=== PATIENT | female | born 1950 | race Two or more races ===

== ENCOUNTER 2024-12-24 09:25 | Emergency (ER) | payer MEDICARE, MEDICAID, SELFPAY ==
[2024-12-24 09:25] VITALS: BP 127/67; PULSE 74; RESP 17; TEMP 36.5; O2SAT 99
[2024-12-24 09:47] VITALS: PULSE 71; RESP 18; O2SAT 98; BMI 18.5
--- NOTE | 2024-12-24 10:46 | EDNOTE_ITS ---
Altered Mental Status RME/HPI General Chief Complaint: Altered Mental Status Stated Complaint: ALTERED Time Seen by Provider: 12/24/24 10:35 Arrival date/time: 12/24/24 09:25 RME / HPI RME / HPI narrative: DR. DUNCAN MAIN ED EVALUATION: 74 year old female with past medical history significant for schizophrenia and behavioral problems presents to the Emergency Department [facility] from home with complaint of altered mental status. Patient has 24 hour care at home and her caregiver Jayne gave us some history. Senior Data Quality Analyst states that since last night about 7 PM the patient became more confused and had x6 urinating accidents, which is not normal. Denies any headache, fall, injury, loss of consciousness, or other symptoms. Denies any blood thinners. Related Data Home Medications ?Medication ?Instructions ?Recorded ?Confirmed acetaminophen 300 mg-codeine 30 mg 1 tab PO Q6HR PRN P ain 02/01/24 02/01/24 tablet Previous Rx's ?Medication ?Instructions ?Recorded amoxicillin 500 mg capsule 500 mg PO Q12H #10 caps 12/24 Allergies Allergy/AdvReac Type Severity Reaction Status Date / Time ibuprofen Allergy Severe Agitated Verified 12/24/24 09:46 Review of Systems Review of Systems Systems Reviewed: All systems reviewed, normal except as documented Narrative Review of Systems: Constitutional: DENIES: fevers; Eyes: DENIES: loss of vision; Head/Ear/Nose: DENIES: loss of hearing. Throat: DENIES: dysphagia. Cardiovascular: DENIES: chest pain, dyspnea, or syncope. Respiratory: DENIES: shortness of breath; Gastrointestinal: DENIES: rectal bleeding or melena. Genitourinary: DENIES: dysuria (painful or difficult urination); Musculoskeletal: DENIES: arthralgia (pain in a joint); Skin: DENIES: rash; Neurological: POSITIVES: AMS (see HPI); DENIES: loss of function or movement; Psychiatric: DENIES: recent major life stressor, emotional problem, illicit drug use or abuse; Endocrinology: DENIES: weight change,; Hematologic/Lymphatic: DENIES: abnormal bruising. Allergic/Immunologic: DENIES: urticaria (hives). Past Medical History Past Medical History PSYCHO/SOCIAL: Positive Schizophrenia, Depression and Anxiety Social History SMOKING STATUS: Never smoker SECOND HAND EXPOSURE: No SUBSTANCE USE: does not use ALCOHOL: Never ED Exam Narrative Physical exam: Physical Exam:? General:?? ? The vital signs were reviewed. ? ? The patient is non-toxic, in no apparent distress and appears healthy with a patent airway, no respiratory distress and has no apparent circulatory problems. Patient stutters and repeats her words, possibly slurry speech. Head & Scalp:?? ? Normocephalic, atraumatic. Face:?? ? Appears normal and is without lesions, deformity. Ears:??? Left external pinna appears normal. ? ? Right external pinna appears normal. Eyes:?? ? The sclera is anicteric.? No obvious photophobia. ? ? The Left and Right Orbit/Lid/Conjunctiva appears normal without swelling, discoloration or injection. Nose: ? ? The nose is without deformity, discharge or tenderness; Throat: ? ? Appears normal.? The mucous membranes are pink and moist without exudates, redness or mass seen.? The tongue appears normal. Neck: The neck is supple and no apparent mass or adenopathy. Chest: The chest wall is normal in size and symmetry and has no chest wall tenderness or crepitus. ? ? The patient displays normal ventilator effort withou t retractions, accessory muscle use and has adequate air movement bilaterally with no wheezes and no rales. ? Cardiovascular: Regular rate and rhythm; No murmurs, rubs, or gallops; Gastrointestinal: The abdomen appears normal.? No obvious hernias or mass. The abdomen is soft and benign, non-distended, with no pain, no guarding and no rebound tenderness.? Bowel sounds are present and normal sounding.? No CVA tenderness. Genitourinary: Back/Spine: Extremities/Musculoskeletal/lymphatic:? ? ? The bilateral upper and lower extremities are warm. There is no evidence of arterial? insufficiency. There is no evidence of venous insufficiency/edema. The patient spontaneously moves bilateral upper and lower extremities with no pain and no limitation of movement.? There is no apparent, injury or trauma. Skin:? The skin is warm, dry and intact.? No rashes. No petechia. No purpura. No abnormal bruising.? The color is appropriate with no cyanosis. Mental status/Psychiatric: Mental status is appropriate for age. The patient has no apparent delusions, visual hallucinations, no apparent audible hallucinations. The patient has no apparent suicidal thoughts/ideation and no apparent homicidal thoughts/ideation. Neurological:? Patient stutters and repeats her words, possibly slurry speech. Otherwise: The patient is awake, alert, interactive, cordial, cooperative and is oriented to name and situation. The patient follows commands and answers historical questions? There is no visual disturbance apparent.? The pupils are equal and reactive bilaterally with normal eye movements and no diplopia The bilateral upper and lower extremities have normal strength, normal range of motion and normal functioning. The gait, station and balance appears? to be baseline with no acute change Course Quality Measures none Orders Category Date Time Status Bedside Blood Glucose NOW Care 12/24/24 10:47 Active EKG (ED ONLY) *Do not use* NOW Care 12/24/24 10:[address] head/brain wo con Stat Exams 12/24/24 10:47 Completed EKG (ED Only) Stat Exams 12/24/24 10:47 Draft XR chest 1V portable Stat Exams 12/24/24 10:47 Completed Alcohol, Blood Medical Stat Lab 12/24/24 11:30 Completed Ammonia Stat Lab 12/24/24 11:30 Completed B-Type Natriuretic Peptide Stat Lab 12/24/24 11:30 Completed Blood Culture (Lab) Stat Lab 12/24/24 11:25 Received CBC Stat Lab 12/24/24 11:30 Completed Comprehensive Metabolic Panel Stat Lab 12/24/24 11:30 Completed Drug Screen,Urine Stat Lab 12/24/24 12:49 Completed Lactate (Lactic Acid) Stat Lab 12/24/24 11:30 Completed Procalcitonin Stat Lab 12/24/24 11:30 Completed Prothrombin Time with INR Stat Lab 12/24/24 11:30 Completed Troponin I Stat Lab 12/24/24 11:30 Completed Type and Screen Stat Lab 12/24/24 11:30 Completed Urinalysis, C/S if Indicated Stat Lab 12/24/24 12:49 Completed Venous Blood Gas Stat Lab 12/24/24 11:30 Completed Sodium Chloride 0.9% 1000 ml [Ns] 2,000 ml Med 12/24/24 10:47 Active IV 150 mls/hr Vital Signs Vital signs: Vital Signs Temperature 97.7 F 12/24/24 09:25 Pulse Rate 74 12/24/24 09:25 Respiratory Rate 17 12/24/24 09:25 Blood Pressure 127/67 12/24/24 09:25 Pulse Oximetry (%) 99 12/24/24 09:25 Oxygen Delivery Method Room Air 12/24/24 09:25 Altered Mental Status MDM Narrative [facility] Narrative:: Medical workup for confusion and slow mentation and complaint of several episodes of and urinary incontinence revealed white count 6.5 hemoglobin of 10.2 which is essentially the same as the previous mild anemia's. pH is 7.50 and pCO2 of 36 consistent with a mild respiratory alkalosis. Note the patient has some anxiety and history of schizophrenia. Sodium 130 potassium 4 2 chloride 104 CO2 of 104. BUN 17 creatinine 0.8 and the rest of the CHEM panel panel is negative troponin was negative BNP was 120 ammonia level is less than 10 and urine came back entirely negative with 3 red cells and 1 white cell. Urine drug screen was also negative. Alcohol level was negative. I cannot explain why this patient is having weakness and/or confusion. I went back in the room and the patient states she feels great wants to go home and claims she has no symptoms at this time. No other major workup was done and somehow her symptoms rapidly improved. I wonder if this is anxiety and she does have some psych issues Patient was ambulated>>>>>>>>>>> has her normal strength he has no problems and feels good and wants to go home. It is unclear to me why her strength is back and but I am glad it is. Medical workup was negative as mentioned above... She has 24-hour caregivers and the current caregiver Reta will continue managing her today and handed off to the next shift. Liz Holley, am scribing for and in the presence of Dr. Duncan. Patient data External records reviewed:: [facility] previous records (Reviewed last ED visit dated 06/13/24, discharged with the following: Acute pelvic pain) and EMS form Clinical information provided by:: patient, EMS and runstitching machine operator (caregiver Jayne) Social determinants that could affect healthcare access:: none Patient has the following chronic illnesses:: schizophrenia and behavioral problems How is presenting disease/condition affected by chronic disease/condition?: uneffected by Evaluation data The following diagnostics were reviewed and interpreted by me:: lab results, radiology exam(s) and EKG tracing(s) (EKG#1: EKG at 1212 hours. Interpreted by me: sinus rhythm, rate 65, no STEMI) Lab and/or radiology exams considered but not ordered:: none Interpretation Summary: See above under MDM narrative. RADIOLOGY Procedure(s): XR chest 1V portable Accession Number(s): [id number] cc: Alexis Duncan MD; Zach Stanford MD~ Examination: AP chest single view TECHNIQUE: AP portable upright chest single view Exam date and time: December 24, 2024 0954 hours Comparison January 31, 2024 INDICATIONS: Onset chest pain today. FINDINGS: Normal heart size. Accentuation of the bronchovascular markings No lobar pneumonia No pulmonary edema Prominent osteopenia IMPRESSION: Bronchitis pattern Dictated By: Zach Stanford MD Procedure(s): CT head/brain wo con Accession Number(s): [id number] cc: Alexis Duncan MD; Zach Stanford MD~ Examination: CT brain head without contrast. 2-D sagittal coronal reconstructions Date and time of exam:December 24, 2024 at 1138 hours Comparison January 31, 2024 INDICATIONS: Loss of consciousness episode today CTDI: vol (mGy):41.9 DLP: (mGycm):757 Technique: Multiple CT axial sections of the brain have been obtained, 5 mm slice thickness. Contrast has not been administered. 2-D sagittal, coronal reconstructions have been obtained Low dose protocols were performed. One or more of the following dose reduction techniques were used; automated exposure control, adjustment of the mA and/or KV according to patient size, use of iterative reconstruction technique. Findings: No significant ventricular enlargement. Intra-axial or extra-axial hemorrhage density is not seen. No mass effect or midline shift Basal cisterns are not remarkable. Fourth ventricle is midline. Cranial vault intact. Prominent chronic microvascular white matter change Impression: Negative for acute hemorrhage, mass effect or midline shift Advise clinical correlation and follow-up accordingly Dictated By: Zach Stanford MD Medications / Prescriptions Medications or Prescriptions considered but not ordered:: none Medication administrations:: Medication Administration History Sodium Chloride (Ns) 2,000 mls @ 150 mls/hr IV .[id number] ONE Stop: 12/25/24 00:06 Last Admin: 12/24/24 13:48 Dose: Not Given Documented By: JT Non-Admin Reason: Pt refused IV see above Consultations Consultation(s) initiated? (list below): No Diagnosis Differential diagnosis altered mental status: altered mental status, dementia, sepsis and other (UTI, dehydration) Most likely diagnosis given after review of the tests above:: See below Admission Indicated Admission indicated?: not indicated Admission Request Was there a request for admission?: No Disposition Plan Disposition Plan: Discharge Discharge Attestation Discharge Attestation: The patient and all family members were given an opportunity to ask questions and understood the discharge instructions. Discharge instructions specifically effects, indications for sooner follow up or return to the emergency department, and the expected course of current diagnosis. Patient condition: Stable Discharge Plan Plan Patient Disposition: HOME (Self Care) Prescriptions/Referrals Prescriptions/Med Rec: No Action acetaminophen-codeine 300-30 mg tablet 1 tab PO Q6HR PRN (Reason: Pain) Patient Comments: TAKE 1 TABLET BY MOUTH EVERY 6 HOURS NEEDED amoxicillin 500 mg capsule 500 mg PO Q12H Qty: 10 0RF Referrals: Alexis Duncan MD [Primary Care Provider] - In 1 week Problem List Clinical Impression: Weakness, Mental health problem, Confusion Patient/Caregiver Discharge Instructions Additional Instructions: It appears your medical problem has improved. If you are getting worse please return for reevaluation. Please stay adequately hydrated. See your doctor follow-up and take your mental health medications as prescribed. Print Language: Portuguese Stand Alone Forms: Johanna Award Info., Patient Portal Info Letter
--- NOTE | 2024-12-24 10:47 | EKG_ITS ---
[facility] Test Date: 2024-12-24 Pat Name: AYLA ARIAS Department: Room: - Gender: Female Rubber Turner: : 1950 Requested By: Alexis Reyes Order Number: [id number] Reading MD: Alexis Reyes Measurements Intervals Swiss Rate: 65 P: 27 WY: 154 QRS: 21 QRSD: 91 T: 41 QT: 391 QTc: 406 Interpretive Statements SINUS RHYTHM Compared to ECG 11/25/2023 09:42:20 No significant changes /store/S0/[id number].pdf
[2024-12-24 11:06] VITALS: BP 154/82; PULSE 66; RESP 17; TEMP 36.8; O2SAT 100
[2024-12-24 11:39] LABS: Base Excess, Venous 5 (-3-3); O2 Saturation, Venous 93 % (96-97); PCO2, Venous 36 mmHg (36-56); PO2, Venous 52 mmHg (15-58)
[2024-12-24 11:41] LABS: Basophils % (Auto) 0 % (0-2.5); Eosinophils # (Auto) 0.1 Thou/mm3 (0.0-0.5); Eosinophils % (Auto) 1 % (0-10); Hematocrit 31.3 % (36.0-46.0); Hemoglobin 10.2 g/dL (12.0-16.0); Immature Granulocytes % (Auto) 0 % (0-0); Immature Granulocytes Auto 0.01 Thou/mm3 (0.00-0.00); Lactate (Lactic Acid) 1.2 mMol/L (0.4-2.0); Lymphocytes # (Auto) 1.3 Thou/mm3 (1.0-4.8); Lymphocytes % (Auto) 19 % (10-50); Mean Corpuscular HGB Conc 32.6 g/dl (31.0-37.0); Mean Corpuscular Hemoglobin 30.2 pg (25.0-35.0); Mean Corpuscular Volume 93 fL (80-100); Monocytes # (Auto) 0.5 Thou/mm3 (0.0-0.8); Monocytes % (Auto) 7 % (0-12); Neutrophils # (Auto) 4.7 Thou/mm3 (1.8-7.7); Neutrophils % (Auto) 72 % (37-80); Nucleated Red Blood Cell % 0 /100 WBC (0); Platelet Count 219 Thou/mm3 (140-440); RDW Standard Deviation 49.4 fL (36.4-46.3); Red Blood Count 3.38 Miln/mm3 (4.00-5.20); White Blood Count 6.5 Thou/mm3 (3.6-11.0)
[2024-12-24 12:06] LABS: Prothrombin Time 10.9 Seconds (9.0-12.2)
[2024-12-24 12:09] LABS: Ammonia < 10 uMol/L (11-32)
[2024-12-24 12:10] LABS: Alanine Aminotransferase 15 U/L (10-49); Albumin, Serum 3.7 gm/dL (3.4-4.8); Albumin/Globulin Ratio 1.2 (1.2-2.2); Alcohol, Blood Medical < 3.0 mg/dL (0-10.0); Alkaline Phosphatase 60 U/L (46-116); Anion Gap 6 (7-16); Aspartate Amino Transferase 13 U/L (0-34); BUN/Creatinine Ratio 21 Ratio (12-20); Bilirubin,Total 0.5 mg/dL (0.3-1.2); Blood Urea Nitrogen 17 mg/dL (9-23); Calcium 8.9 mg/dL (8.3-10.6); Calcium (Corrected) 9.1 mg/dL (8.5-10.1); Carbon Dioxide 28.2 mMol/L (20.0-31.0); Chloride 104 mMol/L (98-107); Creatinine (Component) 0.8 mg/dL (0.6-1.3); Estimated Creatinine Clearance 40.7 mL/min (>60); Glucose 103 mg/dL (74-106); Osmolality,Calculated 277 (275-295); Potassium 4.2 mMol/L (3.4-5.1); Procalcitonin 0.07 ng/ml (0.0-0.49); Sodium 138 mMol/L (136-145); Total Protein 6.7 gm/dL (5.7-8.2); Troponin I < 0.002 ng/mL (0.0-0.045); eGFR > 60 See Note
[2024-12-24 12:24] LABS: B-Type Natriuretic Peptide 120 pg/mL (0-100)
[2024-12-24 13:07] LABS: Collection Type, Urine Clean Catch
[2024-12-24 13:34] LABS: Bilirubin,Urine Negative (Negative); Blood,Urine Negative (Negative); Clarity,Urine Clear (Clear/Hazy); Color,Urine Lt-Yellow (Lt Yel-Yel); Culture Indicated,Urine Not Indicated; Glucose, Urine Negative (Negative); Ketones,Urine Negative (Negative); Leukocyte Esterase,Urine Negative (Negative); Nitrite,Urine Negative (Negative); Protein,Urine Negative (Neg - Trace); RBC,Urine 3 /hpf (0-3); Specific Gravity,Urine 1.016 (1.001-1.035); Squamous Epithelial Cell,Urine < 1 /hpf (0-5); Urobilinogen,Urine Negative mg/dL (0.0-1.0); WBC,Urine 1 /hpf (0-5)
[2024-12-24 13:39] LABS: Amphetamine/Methamp Scrn,U Negative (Negative); Barbiturate Screen,Urine Negative (Negative); Benzodiazepines Screen,Urine Negative (Negative); Benzoylecgonine Screen, Ur Negative (Negative); Fentanyl Screen,Urine Negative (Negative); Opiate Screen,Urine Negative (Negative); THC Screen,Urine Negative (Negative)
[2024-12-24 16:50] VITALS: BP 160/85; PULSE 82; RESP 15; TEMP 36.6; O2SAT 96
== END 2024-12-24 16:50 | disposition home or self-care (01) ==
PROVIDERS: Emergency Provider Emergency Medicine; PCP Emergency Medicine
DX: R53.1 Weakness (principal); R41.0 Disorientation, unspecified; F20.9 Schizophrenia, unspecified
CPT/HCPCS: 36415; 70450; 71045; 80053; 80307; 80320; 81001; 82140; 82803; 83605; 83880; 84145; 84484; 85025; 85610; 86850; 86900; 86901; 87040; 93005; 99284; G0480

== ENCOUNTER → 2025-02-11 | Outpatient (CLI) | payer MEDICARE, MEDICAID, SELFPAY ==
--- NOTE | 2025-02-11 10:45 | XR_ITS ---
Examination: Diagnostic digital mammography, bilateral Computer aided detection 3-D breast Tomosynthesis, bilateral Date and time of exam: February 11, 2025 1046 hours Compared to mammograms dating to May 25, 2010 Technique: Nonmagnified MLO, CC views of the breasts to been obtained, reconstructed from 3-D Tomosynthesis images. R2 computer aided detection program utilized for evaluation of suspicious masses and/or abnormal calcifications. 3-D Tomosynthesis images obtained. Findings: The breasts are heterogeneously dense, which may obscure small masses Benign calcifications Loosely grouped microcalcifications upper outer right breast IMPRESSION: BI-RADS Category 0: Incomplete: Need additional imaging evaluation Loosely grouped microcalcifications upper outer right breast, recommend follow-up magnification spot compression films of these calcifications as well as right breast sonography to complete the workup
== END | disposition home or self-care (01) ==
LOC: CDIM 10:28
PROVIDERS: Referring Provider Internal Medicine; Visit Provider Internal Medicine
DX: R92.0 Mammographic microcalcification found on diagnostic imaging of breast (principal)
CPT/HCPCS: 77062; 77066; G0279